=== PATIENT | male | born 1955 | race Caucasian/White ===

== ENCOUNTER 2018-09-17 04:19 | Emergency (ER) | payer BC ==
--- NOTE | 2018-09-17 04:35 | Emergency Department Record ---
History of Present Illness - General Chief complaint: Pain Stated complaint: L NECK, ARM PAIN Time Seen by Provider: 09/17/18 04:28 Source: Patient Mode of Arrival: Ambulatory Limitations: No limitations - History of Present Illness Initial comments: 63 yo male presents to ED for evaluation of left sided neck pain symptoms. Patient reports that he awoke yesterday morning with the pain symptoms, worsens with turning of the head to the right and elevated of the left upper arm. Patient denies chest pain, shortness of breath, or weakness to the left upper extremity. Patient took several ASA tablets earlier that has improved his pain symptoms. MD Complaint: Neck Pain Onset/Timin -: Hour(s) Location: Left History of Same: No -: Yes Myalgia Radiation: None Consistency: Intermittent Improves with: Immobilization Worsens with: Other (Movement of the neck, left upper extremity.) Associated Symptoms: Denies other symptoms - Related Data Home Medications Medication Instructions Recorded Confirmed Last Taken Metformin HCl 500 mg PO DAILY 09/17/18 09/17/18 Unknown Quinapril HCl [Accupril] 20 mg PO DAILY 09/17/18 09/17/18 Unknown Allergies Allergy/AdvReac Type Severity Reaction Status Date / Time No Known Drug Allergies Allergy Verified 09/17/18 04:21 Review of Systems Constitutional: Denies: Chills, Fever, Malaise, Night sweats Eyes: Denies: Eye discharge, Eye pain ENT: Denies: Congestion, Ear pain, Epistaxis Respiratory: Denies: Cough, Dyspnea Cardiovascular: Denies: Chest pain, Dyspnea on exertion Endocrine: Denies: Fatigue, Heat or cold intolerance Gastrointestinal: Denies: Abdominal pain, Nausea, Vomiting Musculoskeletal: Reports: Myalgia, Neck pain. Denies: Arthralgia, Back pain, Gout, Joint swelling Skin: Denies: Bruising, Change in color Neurological: Denies: Abnormal gait, Confusion, Headache, Seizure Psychiatric: Denies: Anxiety Hematological/Lymphatic: Denies: Anemia, Blood Clots Physical Exam - General General Appearance: Alert, Oriented x3, Cooperative, Mild distress Limitations: No limitations - Head Head exam: Atraumatic, Normocephalic, Normal inspection Head exam detail: negative: Abrasion, Contusion, Murillo's sign, General tenderness, Hematoma, Laceration - Eye Eye exam: Normal appearance. negative: Conjunctival injection, Periorbital swelling, Periorbital tenderness, Scleral icterus - ENT Ear exam: negative: Auricular hematoma, Auricular trauma Nasal Exam: negative: Active bleeding, Discharge, Dried blood, Foreign body Mouth exam: negative: Drooling, Laceration, Muffled voice, Tongue elevation - Neck Neck exam: Tenderness (TTP over the supraspinatus/trapezius muscles of the left neck). negative: Meningismus - Respiratory Respiratory exam: Normal lung sounds bilaterally. negative: Rales, Respiratory distress, Rhonchi, Stridor - Cardiovascular Cardiovascular Exam: Normal rhythm, Normal heart sounds, Bradycardia - GI/Abdominal GI/Abdominal exam: Soft. negative: Rebound, Rigid, Tenderness - Rectal Rectal exam: Deferred - exam: Deferred - Extremities Extremities exam: Normal inspection. negative: Pedal edema, Tenderness - Back Back exam: Denies: CVA tenderness (R), CVA tenderness (L) - Neurological Neurological exam: Alert, Normal gait, Oriented X3 - Psychiatric Psychiatric exam: Normal affect, Normal mood - Skin Skin exam: Normal color. negative: Abrasion Type of lesion: negative: abrasion Course - Reevaluation(s) Reevaluation #1: 09/17/18 04:35 EKG: Sinus bradycardia 51 IVCD, normal axis No acute ST-T wave changes Patient reports that his pulse normally runs upper 50's-60's. Patient denies chest pain symptoms, difficultly in breathing. Symptoms are non-exertional per patient. Symptoms are reproducible on examination with palpation of the left supraspinatus/trapezius muscle. Will administer Toradol and reassess. Reevaluation #2: 09/17/18 05:23 Patient was reassessed, pain improved to 3/10. Patient's symptoms appear c/w myofascial strain. Patient appears stable for discharge at this time. Disposition Disposition: Discharge Clinical Impression: Cervical strain Qualifiers: Encounter type: initial encounter Qualified Code(s): S16.1XXA - Strain of muscle, fascia and tendon at neck level, initial encounter Disposition: Home, Self-Care Condition: (2) Stable Instructions: Cervical Strain (ED) Additional Instructions: Return to ED if your symptoms worsen or if you have any concerns. Ibuprofen as directed. Follow-up with your family doctor in 3-5 days as directed. Forms: Patient Portal Access Time of Disposition: 05:24 Quality - Quality Measures Quality Measures: N/A - Blood Pressure Screening Does Patient Have Any of the Following: No Blood Pressure Classification: Pre-Hypertensive BP Reading Systolic Measurement: 145 Diastolic Measurement: 84 Screening for High Blood Pressure: < Pre-Hypertensive BP, F/U Documented > [ [id number]] Pre-Hypertensive Follow-up Interventions: Referral to alternative/primary care provider.
[2018-09-17] MEDS ORDERED: KETOROLAC 60 MG/2 ML VIAL IM STA (04:37)
== END 2018-09-17 05:33 | disposition home or self-care (01) ==
LOC: ER 04:19
DX: S16.1XXA Strain of muscle, fascia and tendon at neck level, initial encounter (principal); M25.512 Pain in left shoulder; X58.XXXA Exposure to other specified factors, initial encounter
CPT/HCPCS: 93005; 93010; 96372; 99284; J1885